=== PATIENT | female | born 1985 | race Native Hawaiian/Other Pacific Islander ===

== ENCOUNTER 2019-01-02 15:07 | Outpatient (CLI) | payer MEDICAID, OTHER ==
[2019-01-02 16:10] LABS: Bilirubin,Urine NEG (Negative); Blood,Urine NEG (Negative); Color,Urine Yellow (Yellow); Protein,Urine <15 mg/dL mg/dL (Negative); Urobilinogen,Urine < 2.0 mg/dL (<2.0); WBC,Urine < 1.0 /HPF (0.0-6.0)
== END 2019-01-02 15:08 | disposition home or self-care (01) ==
LOC: LAB 15:07
PROVIDERS: ATTEND Internal Medicine
DX: N39.0 Urinary tract infection, site not specified (principal)
CPT/HCPCS: 81001; 87086

== ENCOUNTER 2019-01-05 09:07 | Outpatient (CLI) | payer MEDICAID, OTHER ==
[2019-01-05 11:10] LABS: Hematocrit 35.9 % (30.3-42.9); Hemoglobin 11.7 gm/dl (10.1-14.3); Mean Corpuscular HGB Conc 33 % (30-34); Mean Corpuscular Volume 76 fl (79-97); Platelet Count 299 K/mm3 (140-440); Red Blood Count 4.72 M/mm3 (3.65-5.03); Red Cell Distribution Width 15.6 % (13.2-15.2)
[2019-01-05 11:16] LABS: Alanine Aminotransferase 15 units/L (7-56); BUN/Creatinine Ratio 24; Blood Urea Nitrogen 12 mg/dL (7-17); Chol/HDL Ratio 2.93 %; HDL Cholesterol 60 mg/dL (40-59); Hemolysis Index 0; LDL Cholesterol,Direct 106 mg/dL (50-130)
[2019-01-05 11:31] LABS: Erythrocyte Sedimentation Rate 26 mm/Hr (0-20)
[2019-01-09 05:41] LABS: Vitamin D, 25-OH, D2 <4 ng/mL
== END 2019-01-05 09:08 | disposition home or self-care (01) ==
LOC: LAB 09:07
PROVIDERS: ATTEND Internal Medicine
DX: Z13.21 Encounter for screening for nutritional disorder (principal); Z13.29 Encounter for screening for other suspected endocrine disorder; E78.5 Hyperlipidemia, unspecified; E66.1 Drug-induced obesity
CPT/HCPCS: 36415; 80053; 80061; 82306; 82607; 83036; 84443; 85027; 85652

== ENCOUNTER 2019-01-17 09:54 | Outpatient (CLI) | payer OTHER ==
[2019-01-17 11:40] LABS: Free T4 (Free Thyroxine) 1.02 ng/dL (0.76-1.46)
== END 2019-01-17 09:55 | disposition home or self-care (01) ==
LOC: LAB 09:54
PROVIDERS: ATTEND Internal Medicine
DX: R94.6 Abnormal results of thyroid function studies (principal)
CPT/HCPCS: 36415; 84439; 84443

== ENCOUNTER 2019-01-22 11:35 | Outpatient (CLI) | payer OTHER ==
[2019-01-22 13:19] LABS: HCG Qualitative,Urine Negative (Negative)
[2019-01-22 13:25] LABS: Bacteria,Urine 1+ /HPF (Negative); Bilirubin,Urine NEG (Negative); Blood,Urine MOD (Negative); Color,Urine Yellow (Yellow); Mucus,Urine FEW /HPF; Protein,Urine <15 mg/dL mg/dL (Negative); Urobilinogen,Urine < 2.0 mg/dL (<2.0)
== END 2019-01-22 11:36 | disposition home or self-care (01) ==
LOC: LAB 11:35
PROVIDERS: ATTEND Internal Medicine
DX: N39.0 Urinary tract infection, site not specified (principal)
CPT/HCPCS: 81001; 81025; 87086; 87591

== ENCOUNTER 2019-04-20 09:01 | Outpatient (CLI) | payer OTHER ==
[2019-04-20 12:04] LABS: Iron 34 ug/dL (37-170); Total Iron Binding Capacity 371 mcg/dL (250-450)
[2019-04-26 14:36] LABS: ANA Screen, IFA Negative (Negative)
== END 2019-04-20 09:02 | disposition home or self-care (01) ==
LOC: LAB 09:01
PROVIDERS: ATTEND Internal Medicine
DX: M13.0 Polyarthritis, unspecified (principal); E61.1 Iron deficiency
CPT/HCPCS: 36415; 82728; 83550; 84466; 86038; 86200; 86618

== ENCOUNTER 2019-08-06 14:07 | Outpatient (CLI) | payer OTHER ==
[2019-08-06 09:38] LABS: Basophils % (Auto) 0.5 % (0.0-1.8); Eosinophils # (Auto) 0.1 K/mm3 (0.0-0.4); Eosinophils % (Auto) 1.6 % (0.0-4.3); Hematocrit 38.2 % (30.3-42.9); Hemoglobin 12.3 gm/dl (10.1-14.3); Lymphocytes # (Auto) 2.3 K/mm3 (1.2-5.4); Lymphocytes % (Auto) 30.9 % (13.4-35.0); Mean Corpuscular HGB Conc 32 % (30-34); Mean Corpuscular Volume 77 fl (79-97); Monocytes # (Auto) 0.5 K/mm3 (0.0-0.8); Monocytes % (Auto) 6.9 % (0.0-7.3); Platelet Count 299 K/mm3 (140-440); Red Blood Count 4.99 M/mm3 (3.65-5.03); Red Cell Distribution Width 16.5 % (13.2-15.2)
--- NOTE | 2019-08-06 15:46 | Ultrasound Report ---
ULTRASOUND THYROID INDICATION / CLINICAL INFORMATION: R94.6 ABNORMAL RESULTS OF THYROID FUNCTION STUDIES. COMPARISON: None available. FINDINGS: RIGHT LOBE: Size = 4.4 x 1.7 x 2.3 cm. - Echogenicity: Normal. - Vascularity: Normal. - Nodules < 1 cm: 1 hypoechoic well-defined nodule is noted near mid pole measuring 5 mm. - Nodules >= 1 cm or Suspicious Nodules: None. LEFT LOBE: Size = 5.1 x 1.4 x 2.0 cm cm. - Echogenicity: Normal. - Vascularity: Normal. - Nodules < 1 cm: A 7 mm hypoechoic nodule is noted near mid pole. - Nodules >= 1 cm or Suspicious Nodules: An ill-defined hypoechoic area at the inferior pole measures up to 2.6 x 1.4 x 1.6 cm. ISTHMUS: Mildly thickened and heterogeneous. Thickness = 0.8 cm. - Nodules < 1 cm: None. - Nodules >= 1 cm or Suspicious Nodules: None. LYMPH NODES: No abnormal lymph nodes. PARATHYROID GLANDS: No abnormal parathyroid gland. ADDITIONAL FINDINGS: None. IMPRESSION: The thyroid gland is normal size. Benign-appearing solitary hypoechoic nodules are identified near mid pole of both lobes. Heterogeneous area at the inferior pole of the left thyroid gland is identified measuring up to 2.6 c m which is of uncertain significance. Follow-up is recommended. Note: Nodule size based on mean (average) size of 3 dimensions. Note: Nodules < 1 cm do not typically require follow-up or FNA unless there are suspicious features ( PETER, 2015) ACR TI-RADS Thyroid Nodule Recommendations TI-RADS 1 (0 points) -- Benign. No FNA or follow-up. TI-RADS 2 (1-2 points) -- Not suspicious. No FNA or follow-up. TI-RADS 3 (3 points) -- Mildly suspicious. Follow up in 1 year if 1.5 cm. FNA if 2.5 cm. TI-RADS 4 (4-6 points) -- Moderately suspicious. Follow up in 1 year if 1.0 cm. FNA if 1.5 cm. TI-RADS 5 (7+ points) -- Highly suspicious. Follow up in 1 year if 0.5 cm. FNA if 1.0 cm. Signer Name: Josse Rodgers Jr, MD Signed: 08/06/2019 3:42 PM Workstation Name: [id number]
== END 2019-08-06 14:08 | disposition home or self-care (01) ==
LOC: US 14:07
PROVIDERS: ATTEND Internal Medicine
DX: E61.1 Iron deficiency (principal); R94.6 Abnormal results of thyroid function studies
CPT/HCPCS: 36415; 76536; 82728; 83540; 84443; 85025

== ENCOUNTER 2019-09-06 15:31 | Outpatient (CLI) | payer OTHER ==
--- NOTE | 2019-09-06 16:01 | XRay Report ---
CHEST 2 VIEWS INDICATION / CLINICAL INFORMATION: CHEST PAIN. COMPARISON: None available. FINDINGS: SUPPORT DEVICES: None. HEART / MEDIASTINUM: No significant abnormality. LUNGS / PLEURA: No significant pulmonary or pleural abnormality. No pneumothorax. ADDITIONAL FINDINGS: No significant additional findings. IMPRESSION: 1. No acute findings. Signer Name: Duy Acuña MD Signed: 09/06/2019 3:56 PM Workstation Name: [id number]
== END 2019-09-06 15:32 | disposition home or self-care (01) ==
LOC: XRAY 15:31
PROVIDERS: ATTEND Internal Medicine
DX: R07.9 Chest pain, unspecified (principal)
CPT/HCPCS: 71046

== ENCOUNTER 2019-11-22 10:07 | Outpatient (CLI) | payer OTHER ==
--- NOTE | 2019-11-22 10:57 | Ultrasound Report ---
ULTRASOUND ABDOMEN, COMPLETE INDICATION: UNSPECIFIED ABDOMINAL PAIN. COMPARISON: No relevant prior imaging study available. FINDINGS: Pancreas: No significant abnormality. Abdominal Aorta: No significant abnormality. IVC: No significant abnormality. Liver: The liver measures 17.6 cm in length. Diffusely increased hepatic echogenicity which typically indicates hepatic steatosis.. Normal hepatopedal blood flow in the main portal vein. Gallbladder: Multiple stones. No significant wall thickening or distention. Negative Castle sign. Bile ducts: No significant abnormality. Common bile duct measures 5.1 mm. Right kidney: 9.9 cm in length. No significant abnormality. Left kidney: Not well visualized. Spleen: No significant abnormality. Free fluid: None. Additional Findings: None. IMPRESSION: 1. Cholelithiasis without sonographic evidence of acute cholecystitis. 2. Findings suggest hepatic steatosis. Signer Name: Duy Acuña MD Signed: 11/22/2019 10:52 AM Workstation Name: [id number]
== END 2019-11-22 10:08 | disposition home or self-care (01) ==
LOC: US 10:07
PROVIDERS: ATTEND Internal Medicine
DX: K80.20 Calculus of gallbladder without cholecystitis without obstruction (principal)
CPT/HCPCS: 76700

== ENCOUNTER 2019-12-12 16:22 | Outpatient (CLI) | payer OTHER ==
[2019-12-12 16:53] LABS: Basophils % (Auto) 0.5 % (0.0-1.8); Eosinophils # (Auto) 0.2 K/mm3 (0.0-0.4); Eosinophils % (Auto) 1.8 % (0.0-4.3); Hematocrit 39.2 % (30.3-42.9); Hemoglobin 12.2 gm/dl (10.1-14.3); Lymphocytes # (Auto) 2.4 K/mm3 (1.2-5.4); Mean Corpuscular HGB Conc 31 % (30-34); Mean Corpuscular Volume 80 fl (79-97); Monocytes # (Auto) 0.6 K/mm3 (0.0-0.8); Monocytes % (Auto) 6.6 % (0.0-7.3); Platelet Count 314 K/mm3 (140-440); Red Cell Distribution Width 14.9 % (13.2-15.2)
[2019-12-12 17:16] LABS: Alanine Aminotransferase 16 units/L (7-56); Albumin 3.9 g/dL (3.9-5); BUN/Creatinine Ratio 20; Blood Urea Nitrogen 10 mg/dL (7-17); Calcium 9.2 mg/dL (8.4-10.2); Hemolysis Index 3; Iron 29 ug/dL (37-170)
[2019-12-16 13:18] LABS: Vitamin D, 25-OH, D2 <4 ng/mL
== END 2019-12-12 16:23 | disposition home or self-care (01) ==
LOC: LABHHL 16:22 → LAB 16:22
PROVIDERS: ATTEND Internal Medicine
DX: E66.01 Morbid (severe) obesity due to excess calories (principal)
CPT/HCPCS: 36415; 80053; 82306; 82607; 83540; 83970; 84425; 85025

== ENCOUNTER 2019-12-17 11:38 | Outpatient (CLI) | payer OTHER ==
--- NOTE | 2019-12-17 13:21 | XRay Report ---
LEFT TIBIA FIBULA 2 VIEWS INDICATION: PAIN IN LEFT LEG. COMPARISON: None. IMPRESSION: No acute osseous or soft tissue abnormality. No significant DJD. Signer Name: Josse Rodgers Jr, MD Signed: 12/17/2019 1:16 PM Workstation Name: [id number]
== END 2019-12-17 11:39 | disposition home or self-care (01) ==
LOC: XRAY 11:38
PROVIDERS: ATTEND Internal Medicine
DX: L08.9 Local infection of the skin and subcutaneous tissue, unspecified (principal)

== ENCOUNTER 2020-01-07 09:00 | Outpatient (CLI) | payer OTHER ==
[2020-01-07 10:43] LABS: Hematocrit 35.5 % (30.3-42.9); Hemoglobin 11.5 gm/dl (10.1-14.3); Mean Corpuscular HGB Conc 32 % (30-34); Mean Corpuscular Volume 76 fl (79-97); Platelet Count 256 K/mm3 (140-440); Red Blood Count 4.66 M/mm3 (3.65-5.03); Red Cell Distribution Width 14.2 % (13.2-15.2)
[2020-01-07 11:22] LABS: BUN/Creatinine Ratio 15; Blood Urea Nitrogen 9 mg/dL (7-17); Calcium 8.8 mg/dL (8.4-10.2); Hemolysis Index 0
[2020-01-07 11:45] VITALS: BP 143/82
== END 2020-01-07 12:00 | disposition home or self-care (01) ==
LOC: LAB 09:00 → EDSTATUS 01-10 07:00
PROVIDERS: ATTEND Surgery
DX: K80.20 Calculus of gallbladder without cholecystitis without obstruction (principal); Z53.8 Procedure and treatment not carried out for other reasons; Z11.59 Encounter for screening for other viral diseases; E78.00 Pure hypercholesterolemia, unspecified; I10 Essential (primary) hypertension; K21.9 Gastro-esophageal reflux disease without esophagitis; E66.9 Obesity, unspecified; Z98.891 History of uterine scar from previous surgery; Z79.899 Other long term (current) drug therapy; Z98.890 Other specified postprocedural states; Z98.51 Tubal ligation status; Z83.3 Family history of diabetes mellitus; Z82.49 Family history of ischemic heart disease and other diseases of the circulatory system
CPT/HCPCS: 36415; 80048; 84703; 85027; U0003

== ENCOUNTER 2020-03-18 07:24 | Day surgery (SDC) | payer OTHER ==
[2020-03-18] MEDS ORDERED: VANCOMYCIN/NS 1 GM/250 ML 1 GM/250 ML BAG IV NR (08:00)
--- NOTE | 2020-03-18 08:18 | Anesthesia Consultation ---
Anesthesia Consult and Med Hx Date of service: 03/18/20 - Airway Anesthetic Teeth Evaluation: Good ROM Head & Neck: Adequate Mental/Hyoid Distance: Adequate Mallampati Class: Class III Intubation Access Assessment: Possibly Difficult - Pre-Operative Health Status ASA Pre-Surgery Classification: ASA3 Proposed Anesthetic Plan: General - Pulmonary Hx Smoking: No Hx Asthma: No Hx Respiratory Symptoms: No SOB: No COPD: No Home Oxygen Therapy: No Hx Pneumonia: No Hx Sleep Apnea: Yes (SONIA PRE SCREEN HIGH RISK) - Cardiovascular System Hx Hypertension: Yes (2018) Hx Coronary Artery Disease: No Hx Heart Attack/AMI: No Hx Angina: No Hx Percutaneous Transluminal Coronary Angioplasty (PTCA): No Hx Cardia Arrhythmia: No Hx Pacemaker: No Hx Internal Defibrillator: No Hx Valvular Heart Disease: No Hx Heart Murmur: No Hx Peripheral Vascular Disease: No - Central Nervous System Hx Neuromuscular Disorder: No Hx Seizures: No CVA: No Hx Back Pain: Yes Hx Psychiatric Problems: No - Gastrointestinal Hx Ulcer: No Hx Gastroesophageal Reflux Disease: Yes - Endocrine Hx Renal Disease: No Hx End Stage Renal Disease: No Hx Cirrhosis: No Hx Liver Disease: No Hx Insulin Dependent Diabetes: No Hx Non-Insulin Dependent Diabetes: No Hx Thyroid Disease: No Hx Hypothyroidism: No Hx Hyperthyroidism: Yes (pt states "thyroid is high") - Hematic Hx Anemia: Yes (NOT RECENT, LAST H/H (11.5/35.5- 01/07/20)) Hx Sickle Cell Disease: No - Other Systems Hx Alcohol Use: No Hx Substance Use: No Hx Cancer: No Hx Obesity: Yes (BMI= 56)
--- NOTE | 2020-03-18 08:20 | Anesthesia Day of Surgery ---
Anesthesia Day of Surgery - Day of Surgery Patient Examined: Yes Patient H&P Reviewed: Yes Patient is NPO: Yes
[2020-03-18 08:21] LABS: Hematocrit 32.2 % (30.3-42.9); Hemoglobin 10.5 gm/dl (10.1-14.3); Mean Corpuscular HGB Conc 33 % (30-34); Mean Corpuscular Volume 74 fl (79-97); Platelet Count 305 K/mm3 (140-440); Red Blood Count 4.39 M/mm3 (3.65-5.03); Red Cell Distribution Width 16.4 % (13.2-15.2)
[2020-03-18 08:31] LABS: Blood Urea Nitrogen 10 mg/dL (7-17); Calcium 8.4 mg/dL (8.4-10.2); Hemolysis Index 0
[2020-03-18] MEDS ORDERED: LACTATED RINGERS 1,000 ML ONE (08:31)
[2020-03-18 08:33] LABS: BUN/Creatinine Ratio 20
[2020-03-18] MEDS ORDERED: MIDAZOLAM 2 MG/2 ML INJ ONE (08:45)
[2020-03-18] MEDS ORDERED: MIDAZOLAM 2 MG/2 ML INJ IV NR (09:00)
[2020-03-18] MEDS ORDERED: LACTATED RINGERS 1,000 ML IV SCH (09:00)
[2020-03-18] MEDS ORDERED: VANCOMYCIN 2,000 MG in SODIUM CHLORIDE 0.9% 500 ML 500 ML IV SCH (09:00)
[2020-03-18] MEDS ORDERED: LIDOCAINE (1%) 10 MG/1 ML VIAL 20 ML MDV ONE (10:41)
[2020-03-18] MEDS ORDERED: BUPIVACAINE/PF (0.5%) 5 MG/1 ML 30 ML VIAL INFILTRATI ONE ×2 (10:42→12:12)
[2020-03-18] MEDS ORDERED: propofoL 200 MG/20 ML VIAL IV ONE (10:43)
[2020-03-18] MEDS ORDERED: ROCURONIUM 50 MG/5 ML INJ IV ONE (10:44)
[2020-03-18] MEDS ORDERED: ONDANSETRON 4 MG/2 ML INJ ONE ×2 (10:44→11:10)
[2020-03-18] MEDS ORDERED: LIDOCAINE MPF (2%) 20 MG/1 ML VIAL 5 ML ONE (10:44)
[2020-03-18] MEDS ORDERED: KETOROLAC 30 MG/1 ML INJ ONE (10:44)
[2020-03-18] MEDS ORDERED: HYDROmorphone 1 MG/1 ML INJ ONE ×3 (10:45→12:30)
[2020-03-18] MEDS ORDERED: NEOSTIGMINE 10MG/10 ML INJ MDV ONE (11:10)
[2020-03-18] MEDS ORDERED: dexAMETHasone 20 MG/5 ML VIAL ONE (11:10)
[2020-03-18] MEDS ORDERED: PHENYLEPHRINE/NS 1,000 MCG/10 ML SYRINGE (OR USE) IV ONE (11:10)
[2020-03-18] MEDS ORDERED: SUCCINYLCHOLINE CHLORIDE 200 MG/10 ML INJ MDV ONE (11:10)
[2020-03-18] MEDS ORDERED: GLYCOPYRROLATE 0.4 MG/2 ML INJ ONE (11:10)
[2020-03-18] MEDS ORDERED: LIDOCAINE (1%) 10 MG/1 ML VIAL 20 ML MDV INFILTRATI ONE (12:12)
[2020-03-18] MEDS ORDERED: ePHEDrine SULFATE 50 MG/1 ML INJ ONE (12:17)
--- NOTE | 2020-03-18 13:52 | Short Stay Summary ---
Short Stay Documentation Date of service: 03/18/20 - History Principal diagnosis: symptomatic cholelithiasis H&P: obtained from office - Allergies and Medications Current Medications: Allergies Penicillins Allergy (Verified 03/11/20 11:08) Rash Home Medications Medication Instructions Recorded Confirmed Last Taken Type Esomeprazole Magnesium [NexIUM] 40 mg PO QDAY 01/07/20 03/18/20 03/17/20 09:00 History hydroCHLOROthiazide [HCTZ] 25 mg PO QDAY 01/07/20 03/18/20 03/17/20 09:00 History Fluticasone [Flonase] 1 spray NS QDAY 03/11/20 03/18/20 03/17/20 09:00 History Active Medications Lactated Ringer's (Lactated Ringers) 1,000 mls @ 75 mls/hr IV DIRECT SHANON Last Admin: 03/18/20 08:49 Dose: 75 mls/hr Documented by: Midazolam HCl (Versed) 2 mg IV PREOP NR Stop: 03/18/20 23:59 Last Admin: 03/18/20 08:50 Dose: 2 mg Documented by: - Brief post op/procedure progress note Date of procedure: 03/18/20 Pre-op diagnosis: symptomatic cholelithiasis Post-op diagnosis: same Procedure: laparoscopic cholecystectomy Anesthesia: GETA, local Findings: 1. distended gallbladder with stones 2. hepatic steatosis 3. omental adhesions to anterior abdominal wall in lower midline 4. large amount of intraabdominal fat Surgeon: GABRIELA PEREZ (Yvonne Martinez, DIGITAL CARTOGRAPHER) Estimated blood loss: other (25cc) Pathology: list (gallbladder) Specimen disposition: to lab Condition: stable - Hospital course Hospital course: Pt observed in PACU and discharged to home in stable condition when criteria met. She was sent home with an incentive spirometer and instructions on how to use it. - Disposition Condition at discharge: Good Disposition: - TO HOME OR SELFCARE Short Stay Discharge Plan Activity: other (no heavy lifting) Diet: low fat Wound: open to air, per your surgeon's advice Additional Instructions: SEE PRINTED DISCHARGE INSTRUCTIONS Follow up with: SANTANA KULKARNI MD [Primary Care Provider] - 7 Days GABRIELA PEREZ DO [Staff Physician] - 14 Days Prescriptions: oxyCODONE /ACETAMINOPHEN [Percocet 5/325] 1 tab PO Q4HR PRN #20 tab PRN Reason: Pain , Severe (7-10)
[2020-03-18] MEDS ORDERED: ONDANSETRON 4 MG/2 ML INJ IV PRN (14:22)
[2020-03-18] MEDS ORDERED: HYDROmorphone 1 MG/1 ML INJ IV PRN (14:22)
[2020-03-18] MEDS: HYDROmorphone 1 MG/1 ML INJ IV PRN ×2 (14:26→14:35)
[2020-03-18] MEDS ORDERED: ALBUTEROL 2.5 MG/3 ML NEBU IH ONE ×2 (15:17→15:45)
[2020-03-18] MEDS ORDERED: SODIUM CHLORIDE FOR INHALATION NEBU 3 ML ONE (15:17)
--- NOTE | 2020-03-18 15:41 | Operative Report ---
Operative Report Operative Report: Date of procedure: 03/18/20 Pre-op diagnosis: symptomatic cholelithiasis Post-op diagnosis: same Procedure: laparoscopic cholecystectomy Anesthesia: GETA, local Findings: 1. distended gallbladder with stones 2. hepatic steatosis 3. omental adhesions to anterior abdominal wall in lower midline 4. large amount of intraabdominal fat Surgeon: GABRIELA PEREZ (Yvonne Martinez, HAND SPINNER) Estimated blood loss: other (25cc) Pathology: list (gallbladder) Specimen disposition: to lab Condition: stable Hospital course: Pt observed in PACU and discharged to home in stable condition when criteria met. She was sent home with an incentive spirometer and instructions on how to use it. HPI an indication: 34-year-old female with a history of a laparoscopic gastric bypass, x3, morbid obesity who was referred to the surgery clinic for cholelithiasis. The patient was found to have cholelithiasis on RUQ u/s with recurrent right upper quadrant abdominal pain with meals. It was recommended that the patient undergo cholecystectomy. All risks, benefits, alternatives to surgery were discussed with the patient and questions answered. Consent obtained. Procedure in detail: The patient was identified in the preoperative area and taken back to the operating room, placed on the operating room table in supine position. After anesthesia was induced, the abdomen was prepped and draped in usual sterile fashion and timeout was performed. Local anesthetic was infiltrated into all of the skin incision sites. 2 towel clips were placed on either side of the umbilicus and tented upwards. A Veress needle was inserted through the umbilicus and positioning confirmed using the saline drop test. The abdomen was then insufflated to 15 mmHg. Once the abdomen was insufflated, a supraumbilical incision was made through which a 5 mm Optiview trocar was placed. The abdomen was then inspected and there was no underlying injury to any of the abdominal contents. The Veress needle positioning was verified and appeared to be surrounded by omental adhesions to the anterior abdominal wall. There was no bowel seen in the tract. The Veress needle was withdrawn. The patient was then placed in reverse Trendelenburg and tilted slightly to the left. Due to the patient's body habitus, positioning was limited. An additional 12 mm subxyphoid port, and 2, 5mm RUQ ports were then placed under direct visualization. The gallbladder was visualized and appeared distended but soft. The gallbladder was grasped and retracted cephalad. The patient had evidence of hepatic steatosis and therefore retraction of the gallbladder above the liver was not possible. There was also a large amount of intra-abdominal fat making visualization of the gallbladder neck difficult and therefore another 5 mm right-sided trocar was placed under direct visualization to assist with retraction. The intra-abdominal fat was retracted inferiorly by the service center assistant. The gallbladder neck was then identified and able to be grasped and retracted laterally. The cystic duct and artery were then carefully dissected and the critical view obtained, and the cystic duct and artery were the only two structures seen entering the gallbladder. Three clips were then placed on the proximal aspect of the cystic duct and one clip distally, and 3 clips on the cystic artery proximally and one distal. The cystic duct and cystic artery were then transected in between the clips. There was another small artery that was identified going directly into the gallbladder which was clipped and transected. The gallbladder was dissected off the liver bed using hook electrocautery. The gallbladder was placed into a Endo Catch bag and removed from the abdomen via the 12mm port. There was 1 large stone palpable in the gallbladder. The gallbladder fossa was then inspected and there was no identifiable bleeding or bile leakage. The gallbladder fossa was irrigated and the irrigant returned clear. Hemostasis was ensured. The clips on the cystic duct and artery were visualized and intact. Annette powder was sprayed into the gallbladder fossa and liver bed to further ensure hemostasis. The 12 mm port fascia was then closed with interrupted 0 Vicryl suture using the Aguilar Galvin device. The remaining ports were removed under direct visualization. Skin incisions were closed with 4-0 Monocryl subcuticular stitches and skin glue. All skin incisions were once again infiltrated with local anesthetic. At the end case all sponge, instrument, sharp counts were correct 2. The patient was awoken from anesthesia, extubated, taken to PACU in stable condition. The procedure was made more complex due to the patient's morbid obesity, BMI of 56.6
[2020-03-18 15:48] VITALS: BP 129/64
--- NOTE | 2020-03-18 17:23 | Post Anesthesia Evaluation ---
- Post Anesthesia Evaluation Patient Participated: Yes Airway Patent: Yes Stable Respiratory Function: Yes Nausea/Vomiting: No Temp > 96.8F: Yes Pain Manageable: Yes Adequeate Hydration: Yes Anesthesia Complications: No Block Receding Appropriately: Not Applicable Patient on Ventilator: No
== END 2020-03-18 07:25 | disposition home or self-care (01) ==
LOC: OR 07:24
PROVIDERS: ATTEND Surgery
DX: K80.10 Calculus of gallbladder with chronic cholecystitis without obstruction (principal); Z20.828 Contact with and (suspected) exposure to other viral communicable diseases; K76.0 Fatty (change of) liver, not elsewhere classified; K21.9 Gastro-esophageal reflux disease without esophagitis; E78.00 Pure hypercholesterolemia, unspecified; I10 Essential (primary) hypertension; E66.9 Obesity, unspecified; K66.0 Peritoneal adhesions (postprocedural) (postinfection); E05.90 Thyrotoxicosis, unspecified without thyrotoxic crisis or storm; D64.9 Anemia, unspecified; Z88.0 Allergy status to penicillin; Z79.899 Other long term (current) drug therapy; Z98.890 Other specified postprocedural states; Z98.51 Tubal ligation status; Z98.891 History of uterine scar from previous surgery; Z68.43 Body mass index [BMI] 50.0-59.9, adult; Z83.3 Family history of diabetes mellitus; Z82.49 Family history of ischemic heart disease and other diseases of the circulatory system
CPT/HCPCS: 36415; 47562; 80048; 81025; 85027; 88304; J0330; J1100; J1170; J1885; J2250; J2370; J2405; J2704; J2710; J3370; J7040; J7120; U0003

== ENCOUNTER 2020-05-02 14:29 | Outpatient (CLI) | payer OTHER ==
--- NOTE | 2020-05-02 15:52 | XRay Report ---
RIGHT ANKLE 3 VIEWS INDICATION / CLINICAL INFORMATION: Right ankle pain for one and a half years. COMPARISON: None available. FINDINGS: BONES / JOINT(S): The joint spaces are well-maintained. There is no evidence of acute fracture, sublu xation or destructive lesion. There is a tiny ossific density along the anterior margin of the tibiot alar joint which could represent an intra-articular loose body or the sequela of old trauma. There is a tiny plantar calcaneal spur. SOFT TISSUES: No significant abnormality. ADDITIONAL FINDINGS: None. Signer Name: Marcos Magana MD Signed: 05/02/2020 3:47 PM Workstation Name: [id number]
== END 2020-05-02 14:30 | disposition home or self-care (01) ==
LOC: XRAY 14:29
PROVIDERS: ATTEND Internal Medicine
DX: M77.31 Calcaneal spur, right foot (principal)

== ENCOUNTER 2020-05-16 09:17 | Outpatient (CLI) | payer OTHER ==
--- NOTE | 2020-05-16 10:50 | Ultrasound Report ---
ULTRASOUND THYROID INDICATION / CLINICAL INFORMATION: NONTOXIC THYROID NODULE. COMPARISON: 08/06/2019 FINDINGS: RIGHT LOBE: Size = 4.4 x 1.7 x 2.1 cm. - Echogenicity: Normal. - Nodules < 1 cm: None. - Nodules >= 1 cm or Suspicious Nodules: There is a hypoechoic lesion of the right thyroid lobe to me asure 0.6 x 0.3 x 0.5 cm. LEFT LOBE: Size = 4.5 x 1.4 x 1.9 cm. - Echogenicity: Normal. - Nodules < 1 cm: There is a well-circumscribed hypoechoic lesion of the left mid thyroid lobe measur es 0.7 x 0.4 x 0.6 cm. Additionally there is a more heterogeneous nodule in the left inferior thyroid lobe measures 0.6 x 0.5 x 0.9 cm. - Nodules >= 1 cm or Suspicious Nodules: None. The previously noted heterogeneous area in the left inferior thyroid lobe has improved. ISTHMUS: No significant abnormality. Thickness = 0.8 cm. - Nodules < 1 cm: There is a predominantly solid nodule at the isthmus measuring 0.6 x 0.7 x 0.5 cm d emonstrating small microcalcifications. - Nodules >= 1 cm or Suspicious Nodules: None. LYMPH NODES: No abnormal lymph nodes. PARATHYROID GLANDS: No abnormal parathyroid gland identified. ADDITIONAL FINDINGS: None. IMPRESSION: 1. , Solid nodule at the isthmus measuring 0.6 x 0.7 x 0.5 cm demonstrates small macrocalcifications, consider Ti RADS 3. This nodule is likely new and was not well-visualized on prior exam. 2.Additional thyroid nodules are not suspicious and unchanged from prior exam. NOTE: Nodule size based on mean (average) size of 3 dimensions. NOTE: Nodules < 1 cm do not typically require follow-up or FNA unless there are suspicious features ( PETER, 2015) ACR TI-RADS Thyroid Nodule Recommendations TI-RADS 1 (0 points) ----- BENIGN. No Fine Needle Aspirate biopsy (FNA) or follow-up. TI-RADS 2 (1-2 points) -- NOT SUSPICIOUS. No FNA or follow-up. TI-RADS 3 (3 points) ----- MILDLY SUSPICIOUS. Follow up in 1 year if >= 1.5 cm. FNA if >= 2.5 cm. TI-RADS 4 (4-6 points) -- MODERATELY SUSPICIOUS. Follow up in 1 year if >= 1.0 cm. FNA if >= 1.5 cm. TI-RADS 5 (7+ points) --- HIGHLY SUSPICIOUS. Follow up in 1 year if >= 0.5 cm. FNA if >= 1.0 cm. Reference: ACR Thyroid Imaging, Reporting and Data System (TI-RADS): White Paper of the ACR TI-RADS C ommittee. J AM Robi Radiol 2017;14:587-595. (Additional recommendations based on [employer] 2015 guidelines.) Signer Name: Jaiden Lance MD Signed: 05/16/2020 10:45 AM Workstation Name: [id number]
== END 2020-05-16 09:18 | disposition home or self-care (01) ==
LOC: US 09:17
PROVIDERS: ATTEND Orthopaedic Surgery
DX: E04.1 Nontoxic single thyroid nodule (principal)
CPT/HCPCS: 76536

== ENCOUNTER 2020-08-22 11:18 | Outpatient (CLI) | payer OTHER ==
[2020-08-22 11:55] LABS: Basophils # (Auto) 0.1 K/mm3 (0.0-0.1); Basophils % (Auto) 0.6 % (0.0-1.8); Eosinophils # (Auto) 0.1 K/mm3 (0.0-0.4); Eosinophils % (Auto) 1.1 % (0.0-4.3); Hematocrit 36.2 % (30.3-42.9); Hemoglobin 11.8 gm/dl (10.1-14.3); Lymphocytes # (Auto) 3.2 K/mm3 (1.2-5.4); Lymphocytes % (Auto) 31.4 % (13.4-35.0); Mean Corpuscular HGB Conc 33 % (30-34); Mean Corpuscular Volume 75 fl (79-97); Monocytes # (Auto) 0.7 K/mm3 (0.0-0.8); Monocytes % (Auto) 6.9 % (0.0-7.3); Platelet Count 346 K/mm3 (140-440); Red Blood Count 4.83 M/mm3 (3.65-5.03); Red Cell Distribution Width 15.6 % (13.2-15.2)
[2020-08-22 12:04] LABS: Chol/HDL Ratio 3.66 %
[2020-08-24 21:32] LABS: Vitamin D, 25-OH, D2 <4 ng/mL
== END 2020-08-22 11:19 | disposition home or self-care (01) ==
LOC: LAB 11:18
PROVIDERS: ATTEND Internal Medicine
DX: E78.5 Hyperlipidemia, unspecified (principal); E66.01 Morbid (severe) obesity due to excess calories; D72.819 Decreased white blood cell count, unspecified; R22.43 Localized swelling, mass and lump, lower limb, bilateral
CPT/HCPCS: 36415; 80061; 82306; 82533; 83036; 85025

== ENCOUNTER 2020-10-17 10:18 | Outpatient (CLI) | payer OTHER ==
--- NOTE | 2020-10-17 14:42 | Vascular Lab Report ---
DUPLEX DOPPLER LOWER EXTREMITY VEINS, BILATERAL INDICATION / CLINICAL INFORMATION: EDEMA,UNSPECIFIED. TECHNIQUE: Duplex doppler imaging was performed through the veins of both lower extremities using amrita ous compression and other maneuvers. COMPARISON: None available. FINDINGS: RIGHT COMMON FEMORAL VEIN: Negative. RIGHT FEMORAL VEIN: Negative. RIGHT POPLITEAL VEIN: Negative. RIGHT CALF VEINS: Negative. LEFT COMMON FEMORAL VEIN: Negative. LEFT FEMORAL VEIN: Negative. LEFT POPLITEAL VEIN: Negative. LEFT CALF VEINS: Negative. ADDITIONAL FINDINGS: None. IMPRESSION: 1. No sonographic evidence for DVT in either lower extremity. Scribed by: Dayan Kelley RDMS, RVT Scribed: 10/17/2020 1:30 PM Signer Name: Jules Noel MD Signed: 10/17/2020 2:37 PM Workstation Name: [id number]
== END 2020-10-17 10:19 | disposition home or self-care (01) ==
LOC: VAS 10:18
PROVIDERS: ATTEND Internal Medicine
DX: R60.9 Edema, unspecified (principal)
CPT/HCPCS: 93970